=== PATIENT | female | born 1985 | race Caucasian/White ===

== ENCOUNTER 2017-12-02 17:17 | Emergency (ER) | payer BC, OTHER ==
[2017-12-02 17:48] VITALS: BP 109/64
--- NOTE | 2017-12-02 18:01 | UC ---
General HPI - HPI Summary HPI Summary: pt fell on some steps around 3pm today. she bumped her head and notes R low back pain plus injured her R ankle. she is c/o ankle pain. No loc or spine pain. no numb/wek extremitis. denies any other injury and offers no other complaints. - History of Current Complaint Chief Complaint: UCLowerExtremity Stated Complaint: right ankle,head injuries (fall) Time Seen by Provider: 12/02/17 17:53 Hx Obtained From: Patient Hx Last Menstrual Period: CURRENT Onset/Duration: Sudden Onset Timing: Constant Pain Intensity: 7 - Allergy/Home Medications Allergies/Adverse Reactions: Allergies Allergy/AdvReac Type Severity Reaction Status Date / Time hydrocodone Allergy Airway Verified 12/02/17 18:01 Obstruction ibuprofen Allergy Difficulty Verified 12/02/17 18:01 Breathing naproxen Allergy Difficulty Verified 12/02/17 18:01 Breathing Penicillins Allergy See Comment Verified 12/02/17 18:01 propoxyphene Allergy Airway Verified 12/02/17 18:01 Obstruction PMH/Surg Hx/FS Hx/Imm Hx Previously Healthy: Yes - Surgical History Surgical History: Yes Surgery Procedure, Year, and Place: lap for endometriosis - Family History Known Family History: Positive: None - Social History Occupation: Employed Full-time Lives: With Family Alcohol Use: None Substance Use Type: None Smoking Status (MU): Never Smoked Tobacco - Immunization History Vaccination Up to Date: Yes Review of Systems Constitutional: Negative Skin: Negative Eyes: Negative ENT: Negative Respiratory: Negative Cardiovascular: Negative Gastrointestinal: Negative Genitourinary: Negative Motor: Negative Neurovascular: Negative Musculoskeletal: Other: - sore R low back, R ankle Neurological: Negative Psychological: Negative Is Patient Immunocompromised?: No All Other Systems Reviewed And Are Negative: Yes Physical Exam Triage Information Reviewed: Yes Appearance: Well-Appearing Vital Signs: Initial Vital Signs Temp 97.8 F 12/02/17 17:43 Pulse 86 12/02/17 17:43 Resp 20 12/02/17 17:43 BP 109/64 12/02/17 17:43 Pulse Ox 100 12/02/17 17:43 Vital Signs Reviewed: Yes Eyes: Positive: Conjunctiva Clear ENT: Positive: Normal ENT inspection Neck: Positive: Supple, Nontender, No Lymphadenopathy, Other: - no spinal tenderness Respiratory: Positive: Chest non-tender, Lungs clear, Normal breath sounds Cardiovascular: Positive: RRR, No Murmur Abdomen Description: Positive: Nontender, No Organomegaly, Soft Bowel Sounds: Positive: Present Musculoskeletal: Positive: Other: - Head without dermoity, swelling or break in skin. Spine is without deformity or tenderness. R para spine mild tenderness in lumabr region. ROM intact. RLE= no gross deformity, swelling or discoloration. Tender over R lateral ankle. achilles non tender . foot has full s/v/m function. Neurological: Positive: Alert, Muscle Tone Normal, Other: - CN intact, 2+ reflexes x4, 5/5 strength x4. Psychological Exam: Normal Psychological: Positive: Normal Response To Family Skin Exam: Normal Diagnostics - Laboratory Diagnostic Studies Completed/Ordered: NO FX SEEN ON XRAY - Radiology No standard instances Xray Interpretation: No Acute Changes Radiology Interpretation Completed By: Radiologist Course/Dx - Course Course Of Treatment: no concern for concussion or intracranial injury. contusion to head and back. - Differential Dx - Multi-Symptom Provider Diagnoses: contusion to head, contusion R low back, sprain R ankle Discharge - Discharge Plan Condition: Stable Disposition: HOME Patient Education Materials: Ankle Sprain (ED), Head Injury (ED), Back Pain (ED ) Referrals: Jessica Harper MD [Primary Care Provider] - 5 Days
--- NOTE | 2017-12-02 18:47 | RAD ---
Indication: Right ankle pain. 3 views of the right ankle demonstrates ankle mortise to be intact. Joint spaces all well-preserved. IMPRESSION: Unremarkable right ankle.
== END 2017-12-02 18:52 | disposition home or self-care (01) ==
LOC: UCCORT 17:17
DX: S00.93XA Contusion of unspecified part of head, initial encounter (principal); Z88.0 Allergy status to penicillin; Z88.8 Allergy status to other drugs, medicaments and biological substances; S30.0XXA Contusion of lower back and pelvis, initial encounter; S93.401A Sprain of unspecified ligament of right ankle, initial encounter; W10.2XXA Fall (on)(from) incline, initial encounter; Y93.9 Activity, unspecified; Y92.9 Unspecified place or not applicable
CPT/HCPCS: 99212; G0463

== ENCOUNTER 2018-07-18 08:30 | Emergency (ER) | payer BC ==
[2018-07-18 08:56] VITALS: BP 114/62
[2018-07-18] MEDS ORDERED: Albuterol 2.5 MG/3 ML NEB.SOL* (0.083%) INH ONE (10:29)
--- NOTE | 2018-07-18 10:37 | UC ---
General HPI - HPI Summary HPI Summary: Patient is complaining of three-day history of pains in her chest with cough and swallow plus raising phlegm. She also notes that her chest is heavy due to her lungs being tight. She denies any associated fever or chills. She admits to occasional wheezing as well as a history of asthma. - History of Current Complaint Chief Complaint: UCRespiratory Stated Complaint: COUGH,CONGESTION Time Seen by Provider: 07/18/18 10:21 Hx Obtained From: Patient Hx Last Menstrual Period: 06/29/18 Onset/Duration: Gradual Onset Timing: Constant Pain Intensity: 0 Alleviating: Nothing Associated Signs & Symptoms: Positive: Cough, Chest Pain - In her chest wall with the cough only, Wheezing. Negative: Fever, SOB - Allergy/Home Medications Allergies/Adverse Reactions: Allergies Allergy/AdvReac Type Severity Reaction Status Date / Time azithromycin Allergy Unknown Verified 07/18/18 08:55 Reaction Details hydrocodone Allergy Airway Verified 07/18/18 08:55 Obstruction ibuprofen Allergy Difficulty Verified 07/18/18 08:55 Breathing naproxen Allergy Difficulty Verified 07/18/18 08:55 Breathing Penicillins Allergy See Comment Verified 07/18/18 08:55 propoxyphene Allergy Airway Verified 07/18/18 08:55 Obstruction Home Medications: Home Medications Pseudoephedrine HCl [Sudafed] 30 mg PO ONCE 07/18/18 [History Confirmed 07/18/18 ] PMH/Surg Hx/FS Hx/Imm Hx Respiratory History: Asthma - Surgical History Surgical History: Yes Surgery Procedure, Year, and Place: lap for endometriosis - Family History Known Family History: Positive: None - Social History Occupation: Employed Full-time Lives: With Family Alcohol Use: Rare Substance Use Type: None Smoking Status (MU): Never Smoked Tobacco - Immunization History Vaccination Up to Date: Yes Review of Systems Constitutional: Negative Skin: Negative Eyes: Negative ENT: Negative Respiratory: Cough Cardiovascular: Negative Gastrointestinal: Negative Genitourinary: Negative Motor: Negative Neurovascular: Negative Musculoskeletal: Negative Neurological: Negative Psychological: Negative Is Patient Immunocompromised?: No All Other Systems Reviewed And Are Negative: Yes Physical Exam Triage Information Reviewed: Yes Appearance: Well-Appearing Vital Signs: Initial Vital Signs Temp 98.1 F 07/18/18 08:51 Pulse 99 07/18/18 08:51 Resp 17 07/18/18 08:51 BP 114/62 07/18/18 08:51 Pulse Ox 100 07/18/18 08:51 Vital Signs Reviewed: Yes Eyes: Positive: Conjunctiva Clear ENT: Positive: Pharynx normal, TMs normal. Negative: Nasal congestion, Nasal drainage Neck: Positive: Supple, Nontender, No Lymphadenopathy Respiratory: Positive: Chest non-tender, Lungs clear, No accessory muscle use, Decreased breath sounds, Other: - Frequent bronchospastic cough. Cardiovascular: Positive: RRR, No Murmur, Pulses Normal - Both upper extremities Abdomen Description: Positive: Nontender, Soft Bowel Sounds: Positive: Present Musculoskeletal: Positive: ROM Intact, No Edema - To both lower extremities and tenderness or cords Neurological: Positive: Alert Psychological: Positive: Age Appropriate Behavior Skin Exam: Normal Diagnostics - Radiology No standard instances Radiology Interpretation Completed By: Radiologist - nad Re-Evaluation - Re-Evaluation First Eval Re-Evaluation Time: 11:00 Change: Improved - Patient is noted to have improved aeration with no focal crackles or wheezing post Treatment. She's also noted to have less frequent cough. Course/Dx - Course Course Of Treatment: Patient is nontoxic and not hypoxic. She has no acute abdomen. Her chest x-ray showed no cardiomegaly, infiltrates or pneumothorax. She improved with fungal dilator treatment. Patient has access to nebulizer at home thus of her right her for albuterol nebulizer solution for as needed use plus right her for an albuterol inhaler for use when she is away from home. She was offered short course of steroid treatment; however, is declining as she reports a history of those making her feel weird. She agrees to close follow- up for recheck with the primary care provider in 5 days or sooner for any worsening. There is nothing in her history or physical exam to support treatment of any type of bacterial infection. - Differential Dx - Multi-Symptom Provider Diagnoses: Asthma flare. Bronchitis. Discharge - Sign-Out/Discharge Documenting (check all that apply): Patient Departure All imaging exams completed and their final reports reviewed: Yes - Discharge Plan Condition: Stable Disposition: HOME Prescriptions: Albuterol 2.5MG/3ML (0.083%)* [Ventolin 2.5 MG/3 ML NEB.UCHE*] 2.5 mg INH Q6H PRN #1 box PRN Reason: Wheezing Albuterol HFA INHALER* [Ventolin HFA Inhaler*] 2 puff INH Q6H #1 mdi Patient Education Materials: Asthma (ED), Acute Bronchitis (ED) Referrals: Jessica Harper MD [Primary Care Provider] - 5 Days - Billing Disposition and Condition Condition: STABLE Disposition: Home
--- NOTE | 2018-07-18 10:47 | RAD ---
INDICATION: 4 days productive cough. History of asthma. COMPARISON: No relevant prior exams available on the [facility] PACS for comparison. TECHNIQUE: Dual energy PA and routine lateral views of the chest were obtained. REPORT: Clear lungs and pleural spaces. Negative for pneumothorax. The heart, pulmonary vasculature, and mediastinal contours are unremarkable. Unremarkable osseous structures and soft tissue contours. IMPRESSION: #. No evidence for pneumonia. Negative exam.
== END 2018-07-18 11:10 | disposition home or self-care (01) ==
LOC: UCCORT 08:30
DX: Z88.0 Allergy status to penicillin (principal); Z88.1 Allergy status to other antibiotic agents; Z88.6 Allergy status to analgesic agent; Z88.8 Allergy status to other drugs, medicaments and biological substances; Z88.5 Allergy status to narcotic agent; J45.909 Unspecified asthma, uncomplicated
CPT/HCPCS: 71046; 99212; G0463

== ENCOUNTER 2018-07-25 08:45 | Emergency (ER) | payer BC ==
[2018-07-25 09:11] VITALS: BP 133/79
[2018-07-25] MEDS ORDERED: Ondansetron ODT TAB* 4 MG PO ONE (09:30)
--- NOTE | 2018-07-25 09:57 | UC ---
Respiratory Complaint HPI - HPI Summary HPI Summary: Patient presents to urgent care reporting she was treated for bronchitis approximately one week ago. Patient states she continues to have cough and wheeze. Patient has both an MDI as well as albuterol nebulizer. Patient's been using both 2 or 3 times a day with short-term improvement. Patient has been using [id number] cough and cold medicine without relief. Patient states her cough is getting worse, and at times causing her to gag and have vomiting. Patient denies nausea until this morning. Patient with emesis 1 this morning. Patient denies dysuria. No diarrhea. Patient currently with menses. Patient with a history of asthma. Patient's smokes. Patient states she has fatigue. Patient with tactile temperatures. Patient was not placed in antibiotics. Patient does have a [id number] child who is currently not sick. Patient medications were reviewed this visit Pt is not using a spacer with MDI - History of Current Complaint Chief Complaint: UCRespiratory Stated Complaint: COUGH VOMITING Time Seen by Provider: 07/25/18 09:49 Hx Obtained From: Patient, Medical Records Hx Last Menstrual Period: 07/22/18 Onset/Duration: Gradual Onset Severity Initially: Mild Pain Intensity: 0 - Allergies/Home Medications Allergies/Adverse Reactions: Allergies Allergy/AdvReac Type Severity Reaction Status Date / Time azithromycin Allergy Unknown Verified 07/25/18 09:12 Reaction Details hydrocodone Allergy Airway Verified 07/25/18 09:12 Obstruction ibuprofen Allergy Difficulty Verified 07/25/18 09:12 Breathing naproxen Allergy Difficulty Verified 07/25/18 09:12 Breathing Penicillins Allergy See Comment Verified 07/25/18 09:12 propoxyphene Allergy Airway Verified 07/25/18 09:12 Obstruction strawberry Allergy Hives Verified 07/25/18 09:42 Home Medications: Home Medications Albuterol HFA INHALER* [Ventolin HFA Inhaler*] 2 puff INH Q6H PRN 07/25/18 [ History Confirmed 07/25/18] Cetirizine* [ZyrTEC 10 MG TAB*] 10 mg PO DAILY 07/25/18 [History Confirmed 07/25] Phenylephrine/Dm/Acetaminop/GG [Wal-Phed PE Pressure+Pain [id number] mg] 2 tab PO Q4H PRN 07/25/18 [History Confirmed 07/25/18] PMH/Surg Hx/FS Hx/Imm Hx Previously Healthy: Yes Respiratory History: Asthma - Surgical History Surgical History: Yes Surgery Procedure, Year, and Place: lap for endometriosis - Family History Known Family History: Positive: Other - noncontributory - Social History Occupation: Employed Full-time Lives: With Family Alcohol Use: Rare Substance Use Type: None Smoking Status (MU): Never Smoked Tobacco - Immunization History Vaccination Up to Date: Yes Review of Systems Constitutional: Fever - tactile ENT: Nasal Discharge, Sinus Congestion Gastrointestinal: Vomiting - post tussive All Other Systems Reviewed And Are Negative: Yes Physical Exam - Summary Physical Exam Summary: Vital Signs Reviewed: Yes A+Ox3, no distress, nagging cough Eyes: Conjunctiva Clear, MARLEEN. EOM intact and full ENT: Hearing grossly normal TM x 2 clear, turbinates inflammed, +PND, , no sinus pain. mmoist, uvula midline, no exudate, no erythema Neck: Positive: Supple Respiratory: Positive: No accessory muscle use, scattered wheeze, right base rhonci Cardiovascular: RRR nl s1, s2 no m/r CBT <2 sec abd soft + BS nt/nd no guarding, no distension Musculoskeletal Exam: SEGURA x 4 without difficulty Strength Intact, ROM Intact Neurological: Positive: Alert, + sensation throughout Psychological: Positive: Normal Response To Family Skin: Positive: no rash, no ecchymosis Triage Information Reviewed: Yes Vital Signs: Initial Vital Signs Temp 99.2 F 07/25/18 09:00 Pulse 94 07/25/18 09:00 Resp 18 07/25/18 09:00 BP 133/79 07/25/18 09:00 Pulse Ox 100 07/25/18 09:00 Diagnostic Evaluation - Laboratory O2 Sat by Pulse Oximetry: 100 - Radiology Radiology Interpretation Completed By: Radiologist - Patient Name: MOI LAUGHLIN Medical Record#: [id number] Re-Evaluation - Re-Evaluation First Eval Change: Improved - cxr neg cough improved nausea resolived will give spacer pt in agreement to low dose pred huydrated secretion precaution work note return precautions Respiratory Course/Dx - Course Course Of Treatment: Patient presents with progressive ongoing cough and wheeze. Patient now with some posttussive emesis. Patient also postnasal drip. Patient's been using [id number] medications as well as her albuterol with little improvement. Patient denies this of breath. On exam patient's noted to have a nagging cough. Patient with rhonchi right base. We' ll check chest x-ray. We'll give DuoNeb. Patient unsure whether she wants prednisone as is causes her to be anxious. We'll likely use Flonase. We'll also likely start antibiotics. We'll give patient a spacer. Patient comfortable in agreement with plan - Differential Dx/Diagnosis Provider Diagnoses: acute bronchitis Discharge - Sign-Out/Discharge Documenting (check all that apply): Patient Departure All imaging exams completed and their final reports reviewed: Yes - Discharge Plan Condition: Stable Disposition: HOME Prescriptions: Benzonatate CAP* [Tessalon 100 MG CAP*] 100 mg PO TID PRN #20 cap PRN Reason: Cough DOXYcycline CAP(*) [DOXYcycline 100MG CAP(*)] 100 mg PO BID #20 cap predniSONE [Deltasone 20 MG TAB] 20 mg PO DAILY #5 tablet Patient Education Materials: Acute Bronchitis (ED) Forms: *Gen. Provider Communication, *Work Release Referrals: No Primary Care Phys,NOPCP [Primary Care Provider] - Additional Instructions: - Take antibiotics exactly as prescribed until gone - Use your albuterol puffer with spacer OR nebulizer 2 puffs ever 4 hours for the next 2 days - then as needed - Okay to take over the counter Robitussin or Tessalon Pearls as for coughing -Stay well hydrated - avoid excess caffeine and all alcohol - eat regular, healthy meals - These infections are spread by oral secretions. Do not share eating or drinking utensils. Frequent hand washing is important. Clean items that may get your secretions on them such as cell phones, ipads, computer mouse, television remotes. Once you have been on antbiotics for 2 days, change your pillowcase and your toothbrush -Contact your doctor to arrange a follow-up Call your doctor, return here or go to the emergency department with any questions or concerns - Billing Disposition and Condition Condition: STABLE Disposition: Home
[2018-07-25] MEDS ORDERED: Albuterol/Ipratropium NEB.SOL* Albuterol 2.5 MG/Ipratropium 0.5 MG 3 ML INH ONE (10:06)
--- NOTE | 2018-07-25 10:24 | RAD ---
Indication: Productive cough. 2 views of the chest including dual energy PA views demonstrates no mediastinal shift. Heart is of normal size and configuration. Lung chaudhry are clear. No changes noted since July 18, 2018. IMPRESSION: No active cardiopulmonary disease is noted.
== END 2018-07-25 11:16 | disposition home or self-care (01) ==
LOC: UCCORT 08:45
DX: J20.9 Acute bronchitis, unspecified (principal); Z88.0 Allergy status to penicillin; Z88.1 Allergy status to other antibiotic agents; Z88.5 Allergy status to narcotic agent; Z88.6 Allergy status to analgesic agent; Z91.018 Allergy to other foods
CPT/HCPCS: 71046; 99212; A9270-GY; G0463